=== PATIENT | male | born 1960 | race Caucasian/White ===

== ENCOUNTER 2017-03-30 09:36 | Outpatient (CLI) | payer OTHER ==
--- NOTE | 2017-03-30 11:11 | RAD ---
ABDOMEN ONE VIEW: History: Kidney stone. Follow up. Comparison: 07-11-15 FINDINGS: Visualized bowel gas pattern is nonspecific. Phlebolith projects over the right pelvis and is stable. No abnormal calcifications are reliably demonstrated over the course of the urinary tract. POS: LAURA
== END 2017-03-30 09:37 | disposition home or self-care (01) ==
LOC: RAD 09:36
PROVIDERS: ATTEND Urology
DX: N20.0 Calculus of kidney (principal)
CPT/HCPCS: 74018

== ENCOUNTER 2018-01-03 11:05 | Outpatient (CLI) | payer OTHER ==
--- NOTE | 2018-01-03 14:38 | MRI ---
MRI OF LUMBAR SPINE PERFORMED WITHOUT CONTRAST ENHANCEMENT: Date: 01/03/18 HISTORY: Back pain, left-sided sciatica. COMPARISON: 01/16/15 study. FINDINGS: The vertebral bodies are normal in height. Generalized disc desiccation changes are seen with disc na rrowing at all vertebral body levels. Schmorl's node changes are also present. Minimal spondylolisthe sis of L4 on L5 of approximately 5.0 mm is noted. There is no significant periaortic adenopathy appre ciated. The visualized portions of the kidneys are unremarkable. T12-L1: Degenerative facet changes without canal or foraminal stenosis. L1-2: Degenerative facet changes without canal or foraminal narrowing. L2-3: There is a disc bulge. There is some borderline canal stenosis. Facet and ligamentous hypertrophic ch anges are present. There is some borderline bilateral foraminal narrowing. L3-4: There is a fairly broad based disc bulge. There is a mild degree of canal stenosis. Degenerative face t and ligamentous hypertrophic changes are present. There is moderate bilateral foraminal narrowing. L4-5: There is spondylolisthesis at this level associated with a mild degree of canal stenosis. There is mi ld to moderate right and more severe left-sided foraminal narrowing. L5-S1: The canal shows a mild degree of stenosis without definite significant foraminal narrowing. IMPRESSION: Multilevel canal and foraminal stenosis. POS: LUBNA
== END 2018-01-03 11:06 | disposition home or self-care (01) ==
LOC: MRI 11:05
PROVIDERS: ATTEND Family Medicine
DX: M54.32 Sciatica, left side (principal); M48.061 Spinal stenosis, lumbar region without neurogenic claudication; M99.83 Other biomechanical lesions of lumbar region
CPT/HCPCS: 72148

== ENCOUNTER 2018-03-10 10:17 | Outpatient (CLI) | payer OTHER ==
[2018-03-10 12:54] LABS: Anion Gap 15 mmol/L (10-20); BUN (Urea Nitrogen) 18 mg/dL (8.4-25.7); Calc. Creatinine Clearance 0 mL/min (70-130); Calcium 10.1 mg/dL (7.8-10.44); Carbon Dioxide 23 mmol/L (22-29); Chloride 107 mmol/L (98-107); Estimated GFR-MDRD 77; Glucose 127 mg/dL (70-105); Potassium 4.1 mmol/L (3.5-5.1); Sodium 141 mmol/L (136-145)
== END 2018-03-10 10:18 | disposition home or self-care (01) ==
LOC: LABBT 10:17
PROVIDERS: ATTEND Neurological Surgery
DX: Z01.818 Encounter for other preprocedural examination (principal); M47.26 Other spondylosis with radiculopathy, lumbar region
CPT/HCPCS: 80048; 93005; 93010

== ENCOUNTER 2018-03-17 10:33 | Day surgery (SDC) | payer OTHER ==
[2018-03-10 10:37] VITALS: BMI 32.5
--- NOTE | 2018-03-16 10:37 | HP ---
HISTORY OF PRESENT ILLNESS: Mr. Thomas is known to us for distant lumbar back pain workup after having being kicked by a cow and returns today for evaluation of the same problem, but with onset of profound left lower extremity L5 pain. New MRI at [facility] reveals early grade 1 slip at L4-L5 with severe left-sided L4 foraminal and lateral recess stenosis, this is secondary to bilateral pars defects. At this time, he is ready to do whatever he needs to take care of the pain. PAST MEDICAL HISTORY: Significant for diabetes, hypercholesterolemia, history of kidney stones. PAST SURGICAL HISTORY: Subcutaneous cyst resection, lithotripsy. CURRENT MEDICATIONS: Aspirin, Vytorin, Lyrica, Lantus, and metformin. ALLERGIES: NO KNOWN DRUG ALLERGIES. PHYSICAL EXAMINATION: GENERAL: The patient is alert and oriented x3. Gait is mildly antalgic. EXTREMITIES: Lower extremity motor exam is normal. ASSESSMENT: Lumbar radiculopathy with spondylolisthesis and pars defect. PLAN: Dr. Burroughs met with the patient, reviewed imaging and advocated for bilateral L4-L5 facetectomy and fusion. He explained to the patient the risks, benefits, and alternatives of the procedure. The patient expressed understanding and elected to move forward as discussed. I do believe the patient is mentally competent and capable of making medical decisions for himself. We will move forward with surgery as planned. Job ID: [id number]
[2018-03-17] MEDS ORDERED: CEFAZOLIN 2 GM/50 ML BAG ONE ×2 (11:08→18:24)
[2018-03-17] MEDS ORDERED: Bupivacaine/Epinephrine 0.25% 30 ML VIAL ONE (11:35)
[2018-03-17] MEDS ORDERED: Thrombin 5000 UNITS/5 ML VIAL ONE (11:35)
[2018-03-17] MEDS ORDERED: Sodium Chloride 0.9% 0 ML ONE ×2 (11:35→18:27)
[2018-03-17] MEDS ORDERED: Bupivacaine HCl 0.5%/Epinephrine 1:200,000/PF 30 ml Vial ONE (11:41)
[2018-03-17] MEDS ORDERED: Fentanyl 100 MCG/2 ML VIAL ONE ×4 (12:41→15:33)
[2018-03-17] MEDS ORDERED: Tamsulosin HCl 0.4 MG CAP ONE (14:59)
[2018-03-17] MEDS ORDERED: Ketorolac Tromethamine 30 MG/ML VIAL ONE (15:03)
--- NOTE | 2018-03-17 17:48 | OP ---
DATE OF PROCEDURE: 03/17/2018 UX RESEARCHER: Dannie Pedraza PA-C. INDICATION: Pain. DIAGNOSIS: Lumbar spondylosis with lumbar spondylolisthesis with lumbar radiculopathy and back pain, L4 upon L5. PROCEDURES PERFORMED: L4-L5 lumbar decompression, lumbar facetectomies, posterolateral instrumented fusion, placement of allograft, and placement of autograft. ANESTHESIA: General. DESCRIPTION OF PROCEDURE: The patient was brought into the operating room and placed under general anesthesia. He was flipped from the supine to prone position on operating room table. A linear incision was planned over L4-L5. After prepping and draping and after preoperative pause, the incision was created. The soft tissues were swept away from midline. A self-retaining retractor was placed in the wound for optimal exposure. After confirming the proper levels with C-arm fluoroscopy, high-speed cutting drill bit as well as 2, 3, and 4 mm Kerrisons were used to perform facetectomies of the L4-L5 interspace. The L4 and L5 pedicles were palpated and identified. Pedicle screws were placed in L4 and L5 bilaterally with the aid of C-arm fluoroscopy. After placement of pedicle screws, an intraoperative 3D CT scan was performed to confirm appropriate placement of hardware. Rods were then placed across the screw head and final tightened with set screws. Allograft and autograft material was placed within the lateral confine to the instrumentation construct. Wound was irrigated. Hemostasis was maintained throughout. The wound was then closed in anatomic layers, and a pressure dressing was applied. There were no known procedural complications. Job ID: [id number]
[2018-03-17] MEDS ORDERED: Ondansetron PF 4 MG/2 ML Vial ONE (20:23)
[2018-03-17] MEDS ORDERED: Glycopyrrolate 0.2 MG/ML 5 ML SYRINGE ONE (20:23)
[2018-03-17] MEDS ORDERED: PROPOFOL 200 MG/20 ML VIAL ONE (20:23)
[2018-03-17] MEDS ORDERED: Lidocaine 1% PF 5 ML VIAL ONE (20:23)
[2018-03-17] MEDS ORDERED: Metoclopramide HCl 10 MG/2 ML VIAL ONE (20:23)
[2018-03-17] MEDS ORDERED: Dexamethasone 20 MG/5 ML VIAL ONE (20:23)
[2018-03-17] MEDS ORDERED: PHENYLEPHRINE-NS 100 MCG/ML 10 ML SYRINGE ONE (20:23)
== END 2018-03-17 19:00 | disposition home or self-care (01) ==
LOC: SDC 10:33
PROVIDERS: ATTEND Neurological Surgery
PROC: 0SG0071 Fusion of Lumbar Vertebral Joint with Autologous Tissue Substitute, Posterior Approach, Posterior Column, Open Approach (ICD-10-PCS; principal; 2018-03-17)
DX: M47.26 Other spondylosis with radiculopathy, lumbar region (principal); M43.16 Spondylolisthesis, lumbar region; M48.061 Spinal stenosis, lumbar region without neurogenic claudication; E11.9 Type 2 diabetes mellitus without complications; E78.00 Pure hypercholesterolemia, unspecified; Z79.82 Long term (current) use of aspirin; Z79.84 Long term (current) use of oral hypoglycemic drugs; Z79.899 Other long term (current) drug therapy
CPT/HCPCS: 36416; 76001; 96374; C1713; C1768; J0131; J0670; J1100; J1885; J2001; J2405; J2704; J2765; J3010; J3490; J7050

== ENCOUNTER 2018-07-15 08:15 | Day surgery (SDC) | payer OTHER ==
[2018-07-14 15:54] VITALS: BMI 30.9
--- NOTE | 2018-07-15 11:10 | OP ---
DATE OF PROCEDURE: 07/15/2018 PROCEDURE PERFORMED: Screening colonoscopy. PREOPERATIVE DIAGNOSIS: Colon cancer screening. DESCRIPTION OF PROCEDURE: Informed consent was obtained from the patient. He was sedated with total intravenous anesthesia. The rectal exam was performed and was normal. The preparation quality was excellent. The colonoscope was advanced to the cecum, where the ileocecal valve and appendiceal orifice were clearly identified. The colonic mucosa was normal throughout. Retroflexed views in the rectum were normal. IMPRESSION: Normal screening colonoscopy. RECOMMENDATIONS: Repeat colonoscopy in 10 years. Job ID: [id number]
[2018-07-15] MEDS ORDERED: PROPOFOL 200 MG/20 ML VIAL ONE (16:13)
== END 2018-07-15 10:51 | disposition home or self-care (01) ==
LOC: SDC 08:15
PROVIDERS: ATTEND Internal Medicine Gastroenterology
PROC: 0DJD8ZZ Inspection of Lower Intestinal Tract, Via Natural or Artificial Opening Endoscopic (ICD-10-PCS; principal; 2018-07-15)
DX: Z12.11 Encounter for screening for malignant neoplasm of colon (principal); I10 Essential (primary) hypertension; E11.9 Type 2 diabetes mellitus without complications; E78.00 Pure hypercholesterolemia, unspecified; Z79.82 Long term (current) use of aspirin; Z79.84 Long term (current) use of oral hypoglycemic drugs; Z79.899 Other long term (current) drug therapy
CPT/HCPCS: 36416; J2704

== ENCOUNTER 2020-05-17 12:15 | Outpatient (CLI) | payer OTHER ==
--- NOTE | 2020-05-17 13:13 | ULT ---
Exam: Right upper quadrant ultrasound: HISTORY: Epigastric abdominal pain for 2 weeks. COMPARISON: None FINDINGS: Liver: Within normal limits Gallbladder: No evidence of gallbladder calculi, gallbladder wall thickening, or pericholecystic flui d. Common bile duct: The common duct is normal in caliber measuring 0.5 cm in diameter. Pancreas: Limited visualized portions of the pancreas demonstrate a normal sonographic appearance. Right kidney: Right kidney demonstrates a normal sonographic appearance. The right kidney measures 1 0.9 cm in length. IVC: The visualized IVC demonstrates a normal sonographic appearance. IMPRESSION: Right upper quadrant ultrasound is within normal limits, and no gallbladder calculi are seen.
== END 2020-05-17 12:16 | disposition home or self-care (01) ==
LOC: BICULT 12:15
PROVIDERS: ATTEND Family Medicine
DX: R10.11 Right upper quadrant pain (principal)
CPT/HCPCS: 76705

== ENCOUNTER 2022-12-04 09:34 | Outpatient (CLI) | payer BC | END 2022-12-04 09:35 | disposition home or self-care (01) | LOC: BICMRI 09:34 | PROVIDERS: ATTEND Orthopaedic Surgery | DX: M23.91 Unspecified internal derangement of right knee (principal); M94.8X6 Other specified disorders of cartilage, lower leg; S83.241A Other tear of medial meniscus, current injury, right knee, initial encounter; M25.461 Effusion, right knee ==

== ENCOUNTER 2022-12-28 09:11 | Outpatient (CLI) | payer BC ==
[2022-12-28 10:26] LABS: Anion Gap 14 mmol/L (10-20); BUN (Urea Nitrogen) 21 mg/dL (8.4-25.7); Calc. Creatinine Clearance 0 mL/min (70-130); Calcium 9.1 mg/dL (7.8-10.44); Carbon Dioxide 20 mmol/L (22-29); Chloride 107 mmol/L (98-107); Estimated GFR 87; Glucose 167 mg/dL (70-105); Potassium 4.3 mmol/L (3.5-5.1); Sodium 137 mmol/L (136-145)
[2022-12-29 10:05] LABS: #Basophils 0.1 10x3/uL (0.0-0.2); #Eosinphils 0.3 10x3/uL (0.0-0.5); #Monocytes 0.8 10x3/uL (0.0-1.1); #Neutrophils 5.4 10x3/uL (1.5-8.4); %Basophils 0.7 % (0.0-2.0); %Eosinophils 3.9 % (0.0-6.0); %Lymphocytes 21.1 % (18.0-47.0); %Neutrophils 65.1 % (40.0-75.0); Hematocrit 40.7 % (38.8-50.0); Hemoglobin 12.8 g/dL (13.5-17.5); Mean Corpuscular HGB CONC 31.4 g/dL (32.0-36.0); Mean Corpuscular Hemoglobin 25.7 pg (27.0-33.0); Mean Corpuscular Volume 81.7 fl (81.2-95.1); Mean Platelet Volume 11.4 fl (7.4-10.4); Platelet Count 210 10x3/uL (150-450); RBC Distribution Width 12.9 % (11.5-14.5); Red Blood Cell (RBC) Count 4.98 10x6/uL (4.32-5.72); White Blood Cell (WBC) Count 8.3 10x3/uL (3.5-10.5)
== END 2022-12-28 09:12 | disposition home or self-care (01) ==
LOC: LABBT 09:11
PROVIDERS: ATTEND Orthopaedic Surgery
DX: Z01.818 Encounter for other preprocedural examination (principal); S83.241A Other tear of medial meniscus, current injury, right knee, initial encounter
CPT/HCPCS: 80048; 85025; 93005; 93010

== ENCOUNTER 2022-12-30 09:29 | Day surgery (SDC) | payer BC ==
[2022-12-28 09:40] VITALS: BMI 32.0
[2022-12-30] MEDS ORDERED: fentaNYL PF 100 MCG/2 ML SYRINGE ONE (09:56)
[2022-12-30] MEDS ORDERED: Bupivacaine PF 0.5% 30 ML VIAL ONE (10:06)
[2022-12-30] MEDS ORDERED: PROPOFOL 20 ML ONE (10:06)
[2022-12-30] MEDS ORDERED: Lidocaine 2% PF 5 ML VIAL ONE (10:06)
[2022-12-30] MEDS ORDERED: Sodium Chloride 0.9% 100 ML ONE (10:12)
[2022-12-30] MEDS ORDERED: CEFAZOLIN 2 GM VIAL ONE (10:12)
[2022-12-30] MEDS ORDERED: PROPOFOL 200 MG/20 ML VIAL ONE (11:17)
[2022-12-30] MEDS ORDERED: Bupivacaine HCl 0.5%/Epinephrine 1:200,000/PF 30 ml Vial ONE (11:17)
[2022-12-30] MEDS ORDERED: Ondansetron PF 4 MG/2 ML Vial ONE (11:17)
[2022-12-30] MEDS ORDERED: Ketorolac Tromethamine 30 MG/ML VIAL ONE (11:17)
== END 2022-12-30 13:32 | disposition home or self-care (01) ==
LOC: SDC 09:29
PROVIDERS: ATTEND Orthopaedic Surgery
PROC: 0SBC4ZZ Excision of Right Knee Joint, Percutaneous Endoscopic Approach (ICD-10-PCS; principal; 2022-12-30)
DX: S83.241A Other tear of medial meniscus, current injury, right knee, initial encounter (principal); S83.281A Other tear of lateral meniscus, current injury, right knee, initial encounter; M17.11 Unilateral primary osteoarthritis, right knee; E11.9 Type 2 diabetes mellitus without complications; E78.00 Pure hypercholesterolemia, unspecified; Z87.442 Personal history of urinary calculi; Z79.82 Long term (current) use of aspirin; Z79.899 Other long term (current) drug therapy; X58.XXXA Exposure to other specified factors, initial encounter
CPT/HCPCS: 36416; J1885; J2001; J2405; J2704; J3490; S0020

== ENCOUNTER 2023-09-20 12:27 | Outpatient (CLI) | payer BC | END 2023-09-20 12:28 | disposition home or self-care (01) | LOC: CT 12:27 | PROVIDERS: ATTEND Orthopaedic Surgery | DX: M17.11 Unilateral primary osteoarthritis, right knee (principal) ==

== ENCOUNTER 2023-09-24 09:15 | Outpatient (CLI) | payer BC ==
[2023-09-24 11:13] LABS: Bilirubin Neg (Negative); Blood, Urine Negative (Negative); Clarity Clear (Clear); Glucose, Urine (Dipstick) >=1000 mg/dL (Negative); Ketone, Urine Negative (Negative); Leukocyte Negative (Negative); Nitrite Negative (Negative); Protein, Urine (Dipstick) Negative (Neg-Trace); Specific Gravity, Urine 1.015 (1.005-1.030); Urobilinogen Normal mg/dL (Less than 2)
[2023-09-24 11:16] LABS: #Basophils 0.03 10x3/uL (0.0-0.2); #Eosinphils 0.06 10x3/uL (0.0-0.5); #Monocytes 0.38 10x3/uL (0.0-1.1); #Neutrophils 3.32 10x3/uL (1.5-8.4); %Basophils 0.6 % (0.0-2.0); %Eosinophils 1.2 % (0.0-6.0); %Lymphocytes 24.4 % (18.0-47.0); %Monocytes 7.5 % (0.0-10.0); %Neutrophils 65.9 % (40.0-75.0); Hemoglobin 15.7 g/dL (13.5-17.5); Mean Corpuscular HGB CONC 34.1 g/dL (32.0-36.0); Mean Corpuscular Hemoglobin 30.8 pg (27.0-33.0); Mean Corpuscular Volume 90.4 fL (81.2-95.1); Mean Platelet Volume 10.8 fL (7.4-10.4); Platelet Count 200 10x3/uL (150-450); RBC Distribution Width 13.1 % (11.5-14.5); Red Blood Cell (RBC) Count 5.09 10x6/uL (4.32-5.72)
[2023-09-24 11:36] LABS: Prothrombin Time 10.9 sec (9.5-12.1)
[2023-09-24 11:48] LABS: Anion Gap 13 mmol/L (10-20); BUN (Urea Nitrogen) 18 mg/dL (8.4-25.7); Calc. Creatinine Clearance 0 mL/min (70-130); Calcium 9.6 mg/dL (7.8-10.44); Carbon Dioxide 25 mmol/L (23-31); Chloride 105 mmol/L (98-107); Estimated GFR 80; Glucose 125 mg/dL (80-115); Potassium 4.5 mmol/L (3.5-5.1); Sodium 138 mmol/L (136-145)
== END 2023-09-24 09:16 | disposition home or self-care (01) ==
LOC: LABBT 09:15
PROVIDERS: ATTEND Orthopaedic Surgery
DX: Z01.818 Encounter for other preprocedural examination (principal); M17.11 Unilateral primary osteoarthritis, right knee
CPT/HCPCS: 71046; 80048; 81003; 85025; 85610; 87081; 93005; 93010